=== PATIENT | female | born 1945 | race Caucasian/White ===

== ENCOUNTER 2019-08-07 17:22 | Inpatient (IN) | payer OTHER ==
[~2019-08-07] VITALS: Ht 157.5 cm; Wt 81.6 kg
[~2019-08-07 17:22] MED LIST: CALTRATE-600/VI1 TA1; VITAMIN D31000 UNI1
[2019-08-13] MEDS ORDERED: PROPRANOLOL 20 MG (09:40)
[2019-08-13] MEDS ORDERED: RELAFEN 500MG (09:41)
[2019-08-13] MEDS ORDERED: PROPANALOL PO (10:01)
[2019-08-13] MEDS ORDERED: RELAFEN PO (10:01)
[2019-08-18] MEDS ORDERED: PROPRANOLOL HCL20 MG PO (08:45)
[2019-08-18] MEDS ORDERED: NABUMETONE500 MG PO (08:45)
== END 2019-08-20 16:07 | DRG 470 ==
LOC: SURG 08-13 08:15 → O/R 08-18 05:13 → SURG 08-18 07:00
PROVIDERS: ADMIT Orthopaedic Surgery
PROC: 0SRD0J9 Replacement of Left Knee Joint with Synthetic Substitute, Cemented, Open Approach (ICD-10-PCS; principal; 2019-08-18 07:00)
DX: M17.12 Unilateral primary osteoarthritis, left knee (principal); Z96.652 Presence of left artificial knee joint